=== PATIENT | male | born 1970 | race Caucasian/White ===

== ENCOUNTER 2019-02-10 15:48 | Outpatient (REF) | payer OTHER, SELFPAY ==
[2019-02-10 19:21] LABS: Cholesterol 188 mg/dL (50-200); HDL Cholesterol 41 mg/dL (40-60); LDL CHOLESTEROL 113 mg/dL (<100); Triglyceride 330 mg/dL (30-150)
== END 2019-02-10 16:08 ==
LOC: NCHCN 15:48
PROVIDERS: PCP Family Medicine; Visit Provider Family Medicine
DX: Z00.00 Encounter for general adult medical examination without abnormal findings (principal); R73.01 Impaired fasting glucose
CPT/HCPCS: 80061; 83721

== ENCOUNTER 2019-07-28 09:41 | Outpatient (REF) | payer OTHER, SELFPAY ==
[2019-07-31 01:49] LABS: 2-OH-Ethyl-Flurazepam Negative ng/mL (Cutoff: 100); 7-NH-Clonazepam Negative ng/mL (Cutoff: 100); 7-NH-Flunitrazepam Negative ng/mL (Cutoff: 50); Alpha OH-Alprazolam Negative ng/mL (Cutoff: 100); Alpha-OH-Triazolam Negative ng/mL (Cutoff: 100); Benzodiazepines Interpretation Negative.; Lorazepam Negative ng/mL (Cutoff: 100); Temazepam Negative ng/mL (Cutoff: 100)
== END 2019-07-28 10:01 ==
LOC: NCHCO 09:41
PROVIDERS: PCP Family Medicine; Visit Provider Family Medicine
DX: F11.20 Opioid dependence, uncomplicated (principal)
CPT/HCPCS: 80346

== ENCOUNTER 2020-07-27 16:08 | Outpatient (REF) | payer OTHER, SELFPAY ==
[2020-07-29 19:19] LABS: SARS-CoV-2 RNA Undetected (Undetected); SARS-CoV-2 Specimen Source Nasal
== END 2020-07-27 16:28 ==
LOC: NCHCN 16:08
PROVIDERS: PCP Family Medicine; Visit Provider Nurse Practitioner Family
DX: R07.89 Other chest pain (principal)
CPT/HCPCS: U0003

== ENCOUNTER 2020-12-13 11:05 | Outpatient (REF) | payer OTHER, SELFPAY ==
[2020-12-13 15:49] LABS: HCT 40.5 % (40.0-50.0); HGB 13.5 g/dL (13.5-17.5); MCH 28.5 pg (27.0-33.0); MCHC 33.3 % (32.0-36.0); MCV 85.4 fL (80-95); MPV 10.3 fL (8.0-11.0); Platelet Count 332 10^3/uL (130-400); RBC 4.74 10^6/uL (4.36-5.78); RDW 12.2 % (11.8-14.1); WBC 11.01 10^3/uL (4.4-10.8)
[2020-12-13 15:57] LABS: ALT 25 U/L (16-63); AST 18 U/L (15-37); Albumin 3.9 g/dL (3.4-5.0); Alkaline Phosphatase 78 U/L (46-116); Anion Gap 10.2 mmol/L (3-11); BUN 11 mg/dL (7-18); Bilirubin, Total 0.3 mg/dL (0.2-1.0); CO2 27.8 mmol/L (21.0-32.0); CREATININE 0.8 mg/dL (0.70-1.30); Calcium 9.5 mg/dL (8.5-10.1); Chloride 101 mmol/L (98-107); Glucose 101 mg/dL (74-106); Potassium 4.3 mmol/L (3.5-5.1); Sodium 139 mmol/L (136-145); Total Protein 7.2 g/dL (6.4-8.2)
[2020-12-13 16:40] LABS: Hemoglobin A1C 5.7 % (<5.7)
== END 2020-12-13 11:06 | disposition home or self-care (01) ==
LOC: NCHCN 11:05
PROVIDERS: PCP Family Medicine; Visit Provider Family Medicine
DX: R03.0 Elevated blood-pressure reading, without diagnosis of hypertension (principal); R73.03 Prediabetes
CPT/HCPCS: 80053; 85027; 83036

== ENCOUNTER 2020-12-13 18:51 | Outpatient (CLI) | payer OTHER, SELFPAY ==
--- NOTE | 2020-12-13 09:30 | DI.RAD_ITS ---
EXAM: XR WRIST LT COMPLETE CLINICAL HISTORY: LT WRIST AIN, M25.532. TECHNIQUE: 2D digital imaging was performed. COMPARISON: No exams were available for comparison FINDINGS: There is no evidence of acute fracture nor carpal dislocation. No significant ulnar variance. Bone density is normal. No osseous lesions evident. IMPRESSION: No fracture seen. DATA REPOSITORY: RADIATION DOSE DELIVERED:
== END 2020-12-13 18:52 ==
LOC: DI 12-14 18:54
PROVIDERS: PCP Family Medicine; Visit Provider Family Medicine
DX: M25.532 Pain in left wrist (principal)
CPT/HCPCS: 73110

== ENCOUNTER 2021-12-03 17:04 | Outpatient (REF) | payer OTHER, SELFPAY ==
[2021-12-03 18:23] LABS: Hemoglobin A1C 6.2 % (<5.7)
[2021-12-05 09:55] LABS: HIV-1/2 Ag & Ab Screen Negative (Negative)
== END 2021-12-03 17:05 | disposition home or self-care (01) ==
LOC: NCHCN 17:04
PROVIDERS: PCP Family Medicine; Visit Provider Family Medicine
DX: R73.03 Prediabetes (principal); Z11.4 Encounter for screening for human immunodeficiency virus [HIV]; Z00.00 Encounter for general adult medical examination without abnormal findings
CPT/HCPCS: 87389; 83036

== ENCOUNTER 2024-04-28 17:26 | Outpatient (REF) | payer OTHER, SELFPAY ==
[2024-04-28 19:20] LABS: Hemoglobin A1C 6.3 % (<5.7)
[2024-04-28 19:26] LABS: Anion Gap 7.9 mmol/L (3-11); BUN 13 mg/dL (7-18); CO2 29.1 mmol/L (21.0-32.0); Calcium 8.8 mg/dL (8.5-10.1); Calculated LDL 82 mg/dL (<100); Chloride 103 mmol/L (98-107); Cholesterol 191 mg/dL (<200); Estimated GFR 89.44 (mL/min/1.73m2); Glucose 134 mg/dL (74-106); HDL Cholesterol 49 mg/dL (40-60); Potassium 3.8 mmol/L (3.5-5.1); Sodium 140 mmol/L (136-145); Triglyceride 301 mg/dL (<150)
== END 2024-04-28 17:27 | disposition home or self-care (01) ==
LOC: NCHCN 17:26
PROVIDERS: PCP Family Medicine; Visit Provider Family Medicine
DX: I10 Essential (primary) hypertension (principal); R79.89 Other specified abnormal findings of blood chemistry; Z13.220 Encounter for screening for lipoid disorders; Z13.1 Encounter for screening for diabetes mellitus
CPT/HCPCS: 80048; 80061; 83036

== ENCOUNTER 2025-03-30 21:33 | Outpatient (REF) | payer OTHER, SELFPAY ==
[2025-03-30 21:51] LABS: Anion Gap 8.2 mmol/L (3-11); BUN 14 mg/dL (7-18); CO2 29.8 mmol/L (21.0-32.0); CREATININE 0.8 mg/dL (0.70-1.30); Calcium 9.1 mg/dL (8.5-10.1); Chloride 104 mmol/L (98-107); Estimated GFR 104.51 (mL/min/1.73m2); Glucose 97 mg/dL (74-106); Sodium 142 mmol/L (136-145)
[2025-03-30 21:57] LABS: Hemoglobin A1C 6.3 % (<5.7)
[2025-03-30 22:10] LABS: COMMENT (LAB VIEW ONLY) 150.91 mg/dL; Microalb ug/mg Crea 4.2 ug/mg Cr
== END 2025-03-30 21:34 | disposition home or self-care (01) ==
LOC: NCHCN 21:33
PROVIDERS: PCP Family Medicine; Visit Provider Family Medicine
DX: I10 Essential (primary) hypertension (principal); R73.03 Prediabetes
CPT/HCPCS: 80048; 82043; 82570; 83036